=== PATIENT | male | born 1990 | race American Indian/Alaskan Native ===

== ENCOUNTER 2016-07-18 15:33 | Emergency (ER) | payer SELFPAY ==
[2016-07-18 15:53] VITALS: BP 111/69
[2016-07-18] MEDS ORDERED: LIDOCAINE VISCOUS 2% MM STA (17:24)
--- NOTE | 2016-07-18 17:30 | Emergency Department Report ---
ED ENT HPI - General Chief complaint: Dental/Oral Stated complaint: TOOTHACHE Time Seen by Provider: 07/18/16 17:18 Source: patient Mode of arrival: Ambulatory Limitations: No Limitations - History of Present Illness Initial comments: PT c/o gum infection x 1 week. PT states he thinks he has an abscess. PT states he broke his L front tooth 2-3 years ago. PT states that he went to a dentist 2-3 months ago for toothache and was told that he needs the tooth pulled. PT states his face was swollen but he took 3 doses of his cousin's antibiotic and he had a slight decrease in swelling MD complaint: tooth pain Onset/Timin -: Gradual, days(s) Location: tooth # (9) 1 - broken tooth with dental abscess Severity scale (0 -10): 8 Quality: constant, other (pressure ) Consistency: constant Improves with: other medication Worsens with: other (working in the freezer ) Context- Dental: trauma (2-3 years ago ) Associated Symptoms: gum swelling. denies: fever, sore throat - Related Data Previous Rx's Medication Instructions Recorded Last Taken Type Amoxicillin 500 mg PO BID #20 capsule 07/18/16 Unknown Rx Chlorhexidine Mouthwash [Peridex] 15 ml MM BID 7 Days 07/18/16 Unknown Rx traMADol [Ultram] 50 mg PO Q6HR PRN #12 tablet 07/18/16 Unknown Rx Allergies Allergy/AdvReac Type Severity Reaction Status Date / Time No Known Allergies Allergy Verified 07/18/16 15:52 ED Dental HPI - General Chief complaint: Dental/Oral Stated complaint: TOOTHACHE Time Seen by Provider: 07/18/16 17:18 Source: patient Mode of arrival: Ambulatory Limitations: No Limitations - Related Data Previous Rx's Medication Instructions Recorded Last Taken Type Amoxicillin 500 mg PO BID #20 capsule 07/18/16 Unknown Rx Chlorhexidine Mouthwash [Peridex] 15 ml MM BID 7 Days 07/18/16 Unknown Rx traMADol [Ultram] 50 mg PO Q6HR PRN #12 tablet 07/18/16 Unknown Rx Allergies Allergy/AdvReac Type Severity Reaction Status Date / Time No Known Allergies Allergy Verified 07/18/16 15:52 ED Review of Systems ROS: Stated complaint: TOOTHACHE Other details as noted in HPI Comment: All other systems reviewed and negative Constitutional: denies: fever ENT: as per HPI, dental pain. denies: ear pain, throat pain, congestion Neurological: denies: headache ED Past Medical Hx - Past Medical History Previous Medical History?: No - Surgical History Past Surgical History?: No - Social History Smoking Status: Current Every Day Smoker Substance Use Type: None - Medications Home Medications: Home Medications Medication Instructions Recorded Confirmed Last Taken Type Amoxicillin 500 mg PO BID #20 capsule 07/18/16 Unknown Rx Chlorhexidine Mouthwash [Peridex] 15 ml MM BID 7 Days 07/18/16 Unknown Rx traMADol [Ultram] 50 mg PO Q6HR PRN #12 tablet 07/18/16 Unknown Rx ED Physical Exam - General Limitations: No Limitations General appearance: alert, in no apparent distress - Head Head exam: Present: atraumatic, normocephalic, normal inspection - Eye Eye exam: Present: normal appearance. Absent: conjunctival injection - ENT ENT exam: Present: mucous membranes moist, TM's normal bilaterally, normal external ear exam - Expanded ENT Exam Expanded Ear exam: Present: normal external inspection Mouth exam: Present: normal external inspection. Absent: drooling, trismus Teeth exam: Present: fractured tooth # (9), gingival enlargement, other (dental abscess to tooth #9) Throat exam: Positive: normal inspection - Neck Neck exam: Present: normal inspection, full ROM. Absent: lymphadenopathy - Respiratory Respiratory exam: Present: normal lung sounds bilaterally. Absent: respiratory distress, wheezes - Cardiovascular Cardiovascular Exam: Present: regular rate, normal rhythm - Rectal Rectal exam: Present: deferred - Extremities Exam Extremities exam: Present: normal inspection, full ROM - Back Exam Back exam: Present: normal inspection, full ROM - Neurological Exam Neurological exam: Present: alert, oriented X3 - Psychiatric Psychiatric exam: Present: normal affect, normal mood - Skin Skin exam: Present: warm, dry, intact, normal color ED Course Vital Signs 07/18/16 15:50 Temperature 98.6 F Pulse Rate 66 Respiratory 16 Rate Blood Pressure 111/69 O2 Sat by Pulse 100 Oximetry - Reevaluation(s) Reevaluation #1: 07/18/16 18:03 PT tolerated aspiration well. PT given strict instructions on antibiotic use and compliance. pt advised not to take other's RX medication. PT encouraged to refrain from smoking. PT not ready to quit. PT aware he will have to follow up with Dentist. - I & D Left Upper Jaw Type of Procedure: Simple Site: tooth #9 Blade Size: 18 guage needle I & D Procedure: no sterile drapes applied, no gauze wick placed Progress: pt was given viscous lidocaine for pain control, then an 18 gauge needle was used to aspirate small amount of purulent drainage from dental abscess. pt tolerated the procedure well. - Pulse Oximetry Interpretation Digit-Finger Initial Pulse Oximetry Readin Actions Taken: none ED Medical Decision Making - Differential Diagnosis toothache, gingivitis, dental abscess Critical care attestation.: If time is entered above; I have spent that time in minutes in the direct care of this critically ill patient, excluding procedure time. ED Disposition Clinical Impression: Dental abscess Disposition: DISCHARGED TO HOME OR SELFCARE Is pt being admited?: No Does the pt Need Aspirin: No Condition: Stable Instructions: Dental Abscess (ED) Additional Instructions: Swish and Spit with warm salt water at least 4 times a day Refrain from smoking No driving or ETOH after Ultram You can also take OTC Motrin or Tylenol with your Prescriptions Prescriptions: Amoxicillin 500 mg PO BID #20 capsule Chlorhexidine Mouthwash [Peridex] 15 ml MM BID 7 Days traMADol [Ultram] 50 mg PO Q6HR PRN #12 tablet PRN Reason: Pain Referrals: PRIMARY CARE,MD [Primary Care Provider] - 3-5 Days Forms: Work/School Release Form(ED) Time of Disposition: 18:06
== END 2016-07-18 18:14 | disposition home or self-care (01) ==
LOC: ED 15:33
DX: K04.7 Periapical abscess without sinus (principal); F17.200 Nicotine dependence, unspecified, uncomplicated

== ENCOUNTER 2017-01-13 00:55 | Emergency (ER) | payer SELFPAY ==
[2017-01-13] MEDS ORDERED: TYLENOL PO ONE (01:32)
[2017-01-13 02:02] LABS: Eosinophils % (Auto) 5.3 % (0.0-4.3); Hematocrit 40.8 % (35.5-45.6); Hemoglobin 13.6 gm/dl (11.8-15.2); Mean Corpuscular HGB Conc 33 % (32-34); Mean Corpuscular Hemoglobin 30 pg (28-32); Mean Corpuscular Volume 89 fl (84-94); Platelet Count 196 K/mm3 (140-440); Red Blood Count 4.58 M/mm3 (3.65-5.03); Red Cell Distribution Width 13.6 % (13.2-15.2); White Blood Count 7.5 K/mm3 (4.5-11.0)
[2017-01-13 02:22] LABS: Anion Gap 16 mmol/L; BUN/Creatinine Ratio 17.77; Blood Urea Nitrogen 16 mg/dL (9-20); Carbon Dioxide 26 mmol/L (22-30); Chloride 102.9 mmol/L (98-107); Glucose 74 mg/dL (75-100); Potassium 4.3 mmol/L (3.6-5.0); Sodium 141 mmol/L (137-145)
--- NOTE | 2017-01-13 07:44 | XRay Report ---
ROUTINE CHEST, TWO VIEWS: HISTORY: chest pain. The trachea, heart, mediastinal contour, lung sifuentes and bony thorax are unremarkable. IMPRESSION: Unremarkable chest x-ray.
[2017-01-13 09:49] VITALS: BP 100/67
--- NOTE | 2017-01-13 09:56 | Emergency Department Report ---
ED Chest Pain HPI - General Chief Complaint: Chest Pain Stated Complaint: CP Time Seen by Provider: 01/13/17 09:38 Source: patient Mode of arrival: Ambulatory Limitations: No Limitations - History of Present Illness Initial Comments: 26-year-old male here with complaint of chest pain. Patient states that he has had increasing chest pain for the last 3 weeks. He's had some cough in the pain is worse with cough. Is also worse with rotating his chest. He has no shortness of breath no fevers no chills. No history of coronary disease. MD Complaint: chest pain -: days(s), week(s) (3) Onset: during exertion Pain Location: left chest Pain Radiation: none Severity: mild Severity scale (0 -10): 0 Quality: sharp Consistency: intermittent Improves With: nothing Worsens With: movement, other (cough) re: denies: nausea, vomting, diaphoresis, dyspnea, sense of impending doom Other Symptoms: cough - Related Data Previous Rx's Medication Instructions Recorded Last Taken Type Amoxicillin 500 mg PO BID #20 capsule 07/18/16 Unknown Rx Chlorhexidine Mouthwash [Peridex] 15 ml MM BID 7 Days 07/18/16 Unknown Rx traMADol [Ultram] 50 mg PO Q6HR PRN #12 tablet 07/18/16 Unknown Rx Ibuprofen [Motrin] 600 mg PO Q8H PRN #30 tablet 01/13/17 Unknown Rx Allergies Allergy/AdvReac Type Severity Reaction Status Date / Time No Known Allergies Allergy Verified 07/18/16 15:52 Heart Score - HEART Score History: Slightly suspicious EKG: Normal Age: < 45 Risk factors: No known risk factors Troponin: < normal limit HEART Score: 0 - Critical Actions Critical Actions: 0-3 pts:0.9-1.7%risk of adverse cardiac event.Candidate for discharge ED Review of Systems ROS: Stated complaint: CP Other details as noted in HPI Comment: All other systems reviewed and negative Constitutional: denies: chills, fever Eyes: denies: eye pain, eye discharge, vision change ENT: denies: ear pain, throat pain Respiratory: denies: cough, shortness of breath, wheezing Cardiovascular: denies: chest pain, palpitations Endocrine: no symptoms reported Gastrointestinal: denies: abdominal pain, nausea, diarrhea Genitourinary: denies: urgency, dysuria Musculoskeletal: denies: back pain, joint swelling, arthralgia Skin: denies: rash, lesions Neurological: denies: headache, weakness, paresthesias Psychiatric: denies: anxiety, depression Hematological/Lymphatic: denies: easy bleeding, easy bruising ED Past Medical Hx - Past Medical History Previous Medical History?: No - Surgical History Past Surgical History?: No - Family History Family history: no significant - Social History Smoking Status: Current Every Day Smoker Substance Use Type: None - Medications Home Medications: Home Medications Medication Instructions Recorded Confirmed Last Taken Type Amoxicillin 500 mg PO BID #20 capsule 07/18/16 Unknown Rx Chlorhexidine Mouthwash [Peridex] 15 ml MM BID 7 Days 07/18/16 Unknown Rx traMADol [Ultram] 50 mg PO Q6HR PRN #12 tablet 07/18/16 Unknown Rx Ibuprofen [Motrin] 600 mg PO Q8H PRN #30 tablet 01/13/17 Unknown Rx ED Physical Exam - General Limitations: No Limitations General appearance: alert, in no apparent distress - Head Head exam: Present: atraumatic, normocephalic - Eye Eye exam: Present: normal appearance - ENT ENT exam: Present: mucous membranes moist - Neck Neck exam: Present: normal inspection - Respiratory Respiratory exam: Present: normal lung sounds bilaterally. Absent: respiratory distress - Cardiovascular Cardiovascular Exam: Present: regular rate, normal rhythm, normal heart sounds. Absent: systolic murmur, diastolic murmur, rubs, gallop - GI/Abdominal GI/Abdominal exam: Present: soft, normal bowel sounds - Rectal Rectal exam: Present: deferred - Extremities Exam Extremities exam: Present: normal inspection - Back Exam Back exam: Present: normal inspection - Neurological Exam Neurological exam: Present: alert, oriented X3 - Psychiatric Psychiatric exam: Present: normal affect, normal mood - Skin Skin exam: Present: warm, dry, intact, normal color. Absent: rash ED Course Vital Signs 01/13/17 01/13/17 01/13/17 00:58 00:59 05:38 Temperature 98.6 F 97.8 F Pulse Rate 68 68 60 Respiratory 20 18 Rate Blood Pressure 107/72 103/63 Blood Pressure [Left] O2 Sat by Pulse 98 98 99 Oximetry 01/13/17 01/13/17 09:33 09:45 Temperature 97.8 F 97.7 F Pulse Rate 55 L 50 L Respiratory 16 14 Rate Blood Pressure 103/60 Blood Pressure 100/67 [Left] O2 Sat by Pulse 99 100 Oximetry ED Medical Decision Making - Lab Data Result diagrams: 01/13/17 01:43 01/13/17 01:43 Laboratory Results - last 24 hr 01/13/17 01/13/17 01/13/17 01:43 01:43 04:29 WBC 7.5 RBC 4.58 Hgb 13.6 Hct 40.8 MCV 89 MCH 30 MCHC 33 RDW 13.6 Plt Count 196 Lymph % (Auto) 27.8 [place] % (Auto) 9.4 H Eos % (Auto) 5.3 H Baso % (Auto) 1.0 Lymph # 2.1 [place] # 0.7 Eos # 0.4 Baso # 0.1 Seg Neutrophils % 56.5 Seg Neutrophils # 4.3 Sodium 141 Potassium 4.3 Chloride 102.9 Carbon Dioxide 26 Anion Gap 16 BUN 16 Creatinine 0.9 Estimated GFR > 60 BUN/Creatinine Ratio 17.77 Glucose 74 L Calcium 9.0 Troponin T < 0.010 < 0.010 01/13/17 07:06 WBC RBC Hgb Hct MCV MCH MCHC RDW Plt Count Lymph % (Auto) [place] % (Auto) Eos % (Auto) Baso % (Auto) Lymph # [place] # Eos # Baso # Seg Neutrophils % Seg Neutrophils # Sodium Potassium Chloride Carbon Dioxide Anion Gap BUN Creatinine Estimated GFR BUN/Creatinine Ratio Glucose Calcium Troponin T < 0.010 - EKG Data -: EKG Interpreted by Me - EKG Data 01/13/17 10:02 Sinus 57 normal axis or intervals no ST-T wave changes - Medical Decision Making 26-year-old male here with chest pain for several weeks. Pain is worse with cough and worse with inspiration. His EKG is normal chest x-ray is normal labs are unremarkable. I don't suspect that he has a PE. His oxygen saturations are 100% and he is bradycardic. Plan to discharge him with NSAIDs. Portions of this chart were dictated with dictation software. There may be dictation errors contained within this note. Critical care attestation.: If time is entered above; I have spent that time in minutes in the direct care of this critically ill patient, excluding procedure time. ED Disposition Clinical Impression: Musculoskeletal chest pain Disposition: DC- TO HOME OR SELFCARE Is pt being admited?: No Condition: Stable Instructions: Chest Pain (ED) Prescriptions: Ibuprofen [Motrin] 600 mg PO Q8H PRN #30 tablet PRN Reason: Pain Referrals: PRIMARY CARE,MD [Primary Care Provider] - 3-5 Days
[2017-01-13] MEDS ORDERED: TORADOL IM ONE (10:09)
[2017-01-13] MEDS ORDERED: TORADOL ONE (10:20)
== END 2017-01-13 10:30 | disposition home or self-care (01) ==
LOC: ED 00:55
DX: R07.89 Other chest pain (principal); R05 Cough; F17.210 Nicotine dependence, cigarettes, uncomplicated
CPT/HCPCS: 36415; 71020; 80048; 84484; 85025; 93005; 93010; 96372; 99284; J1885

== ENCOUNTER 2018-10-24 02:08 | Emergency (ER) | payer OTHER ==
[2018-10-24 02:58] VITALS: BP 96/52
--- NOTE | 2018-10-24 05:00 | Emergency Department Report ---
- General Chief complaint: Skin Rash Stated complaint: KNOT ON LT SIDE Time Seen by Provider: 10/24/18 04:07 Source: patient Mode of arrival: Ambulatory Limitations: No Limitations - History of Present Illness Initial comments: Patient is a 28-year-old male who presents the emergency department with complaints of a possible insect bite to the right forearm that occurred 3 days ago. He did not see anything bite him. He states he has had some itching. He denies any drainage or fever. He states he also has a "lump" to his left ribs which has been there for "several years." He denies any pain of the lump or any drainage. pt denies any past medical history. Denies any allergies to medications or daily medications. - Related Data Previous Rx's Medication Instructions Recorded Last Taken Type Amoxicillin 500 mg PO BID #20 capsule 07/18/16 Unknown Rx Chlorhexidine Mouthwash [Peridex] 15 ml MM BID 7 Days bottle 07/18/16 Unknown Rx traMADol [Ultram] 50 mg PO Q6HR PRN #12 tablet 07/18/16 Unknown Rx Ibuprofen [Motrin] 600 mg PO Q8H PRN #30 tablet 01/13/17 Unknown Rx Neomycin/Bacitracin/Polymyxinb 1 applicatio TP BID #1 oint...g. 10/24/18 Unknown Rx [Triple Antibiotic Ointment] Allergies Allergy/AdvReac Type Severity Reaction Status Date / Time No Known Allergies Allergy Verified 07/18/16 15:52 Abscess Boil HPI - HPI Chief Complaint: Skin Rash Stated Complaint: KNOT ON LT SIDE Time Seen by Provider: 10/24/18 04:07 Home Medications: Previous Rx's Medication Instructions Recorded Last Taken Type Amoxicillin 500 mg PO BID #20 capsule 07/18/16 Unknown Rx Chlorhexidine Mouthwash [Peridex] 15 ml MM BID 7 Days bottle 07/18/16 Unknown Rx traMADol [Ultram] 50 mg PO Q6HR PRN #12 tablet 07/18/16 Unknown Rx Ibuprofen [Motrin] 600 mg PO Q8H PRN #30 tablet 01/13/17 Unknown Rx Neomycin/Bacitracin/Polymyxinb 1 applicatio TP BID #1 oint...g. 10/24/18 Unknown Rx [Triple Antibiotic Ointment] Allergies/Adverse Reactions: Allergies Allergy/AdvReac Type Severity Reaction Status Date / Time No Known Allergies Allergy Verified 07/18/16 15:52 ED Review of Systems ROS: Stated complaint: KNOT ON LT SIDE Other details as noted in HPI Comment: All other systems reviewed and negative ED Past Medical Hx - Past Medical History Previous Medical History?: No - Surgical History Past Surgical History?: No - Social History Smoking Status: Current Every Day Smoker - Medications Home Medications: Home Medications Medication Instructions Recorded Confirmed Last Taken Type Amoxicillin 500 mg PO BID #20 capsule 07/18/16 Unknown Rx Chlorhexidine Mouthwash [Peridex] 15 ml MM BID 7 Days bottle 07/18/16 Unknown Rx traMADol [Ultram] 50 mg PO Q6HR PRN #12 tablet 07/18/16 Unknown Rx Ibuprofen [Motrin] 600 mg PO Q8H PRN #30 tablet 01/13/17 Unknown Rx Neomycin/Bacitracin/Polymyxinb 1 applicatio TP BID #1 oint...g. 10/24/18 Unknown Rx [Triple Antibiotic Ointment] ED Physical Exam - General Limitations: No Limitations General appearance: alert, in no apparent distress - Head Head exam: Present: atraumatic, normocephalic - Eye Eye exam: Present: normal appearance, PERRL - ENT ENT exam: Present: mucous membranes moist - Neurological Exam Neurological exam: Present: alert, oriented X3 - Psychiatric Psychiatric exam: Present: normal affect, normal mood - Skin Skin exam: Present: warm, dry, other (very small abrasion to the anterior surface of the right forearm, no blistering, no erythema, no induration, no fluctuance, no drainage, small 1 cm area of edema to the left lateral rib cage that is freely moveable no induration, no erythema) ED Course Vital Signs 10/24/18 02:53 Temperature 98.8 F Pulse Rate 95 H Respiratory 18 Rate Blood Pressure 96/52 O2 Sat by Pulse 97 Oximetry ED Medical Decision Making - Medical Decision Making Patient is a 28-year-old male who presents the emergency department with complaints of a possible insect bite to the right forearm that occurred 3 days ago. He did not see anything bite him. He states he has had some itching. He denies any drainage or fever. He states he also has a "lump" to his left ribs which has been there for "several years." He denies any pain of the lump or any drainage. pt denies any past medical history. Denies any allergies to medications or daily medications. on exam: very small abrasion to the anterior surface of the right forearm, no blistering, no erythema, no induration, no fluctuance, no drainage, small 1 cm area of edema to the left lateral rib cage that is freely moveable no induration, no erythema, no TTP, area on the rib cage most likely representing a lipoma discussed with pt that it is typically a benign finding and to follow up with PCP for reevaluation of the area. pt given abx ointment prescription. advised to use as prescribed on the forearm. may take benadryl over the counter for itching. follow up with a primary care doctor in the next 2-3 days. return to the emergency room for any new or worsening symptoms. Critical care attestation.: If time is entered above; I have spent that time in minutes in the direct care of this critically ill patient, excluding procedure time. ED Disposition Clinical Impression: Lump of rib Abrasion of right forearm Qualifiers: Encounter type: initial encounter Qualified Code(s): S50.811A - Abrasion of right forearm, initial encounter Disposition: TO HOME OR SELFCARE Is pt being admited?: No Does the pt Need Aspirin: No Condition: Stable Instructions: Insect Bite or Sting (ED) Additional Instructions: advised to use ointment as prescribed on the forearm. may take benadryl over the counter for itching. follow up with a primary care doctor in the next 2-3 days. return to the emergency room for any new or worsening symptoms. Prescriptions: Neomycin/Bacitracin/Polymyxinb [Triple Antibiotic Ointment] 1 applicatio TP BID #1 oint...g. Referrals: BHARGAVI RIVERA MD [Primary Care Provider] - 2-3 Days [facility] [Outside] - 2-3 Days [facility] [Outside] - 2-3 Days Time of Disposition: 05:00 Print Language: WOLOF
== END 2018-10-24 05:08 | disposition home or self-care (01) ==
LOC: ED 02:08
DX: S50.811A Abrasion of right forearm, initial encounter (principal); R22.2 Localized swelling, mass and lump, trunk; F17.200 Nicotine dependence, unspecified, uncomplicated; Z79.899 Other long term (current) drug therapy; X58.XXXA Exposure to other specified factors, initial encounter; Y93.89 Activity, other specified; Y92.89 Other specified places as the place of occurrence of the external cause; Y99.8 Other external cause status
CPT/HCPCS: 99281

== ENCOUNTER 2020-02-27 14:42 | Emergency (ER) | payer SELFPAY ==
[2020-02-27 14:57] VITALS: BP 118/61
--- NOTE | 2020-02-27 15:09 | Emergency Department Report ---
ED Upper Extremity Inj HPI - General Chief Complaint: Shoulder Injury Stated Complaint: LT ARM PAIN Time Seen by Provider: 02/27/20 15:02 Source: patient Mode of arrival: Ambulatory Limitations: No Limitations - History of Present Illness Initial Comments: This is a 29-year-old male nontoxic, well nourished in appearance, no acute signs of distress presents to the ED with c/o of chronic left shoulder pain x 30 years. Patient denies any new trauma or injuries. Stated came into the ED due to free time and wanted to get it checked out. Denies decreased ROM, joint swelling, redness, or abnormal gait. Denies any fever, chills, nausea, vomiting, headache, stiff neck, chest pain or shortness of breath. Patient denies any numbness or tingling. Denies any allergies. MD Complaint: Injury to:: left, shoulder -: year(s) (30) Other Extremity Injury: Shoulder: Left Severity scale (0 -10): 0 Improves With: none Worsens With: none Associated Symptoms: denies other symptoms. denies: weakness, numbness, neck pain, suspects foreign body, nausea/vomiting, heard/felt popping sensat - Related Data Previous Rx's Medication Instructions Recorded Last Taken Type Amoxicillin 500 mg PO BID #20 capsule 07/18/16 Unknown Rx Chlorhexidine Mouthwash [Peridex] 15 ml MM BID 7 Days bottle 07/18/16 Unknown Rx traMADoL [Ultram] 50 mg PO Q6HR PRN #12 tablet 07/18/16 Unknown Rx Ibuprofen [Motrin] 600 mg PO Q8H PRN #30 tablet 01/13/17 Unknown Rx Neomycin/Bacitracin/Polymyxinb 1 applicatio TP BID #1 oint...g. 10/24/18 Unknown Rx [Triple Antibiotic Ointment] Allergies Allergy/AdvReac Type Severity Reaction Status Date / Time No Known Allergies Allergy Verified 07/18/16 15:52 ED Review of Systems ROS: Stated complaint: LT ARM PAIN Other details as noted in HPI Comment: All other systems reviewed and negative Constitutional: denies: chills, fever Eyes: denies: eye pain, eye discharge, vision change ENT: denies: ear pain, throat pain Respiratory: denies: cough, shortness of breath, wheezing Cardiovascular: denies: chest pain, palpitations Endocrine: no symptoms reported Gastrointestinal: denies: abdominal pain, nausea, diarrhea Genitourinary: denies: urgency, dysuria Musculoskeletal: denies: back pain, joint swelling, arthralgia Skin: denies: rash, lesions Neurological: denies: headache, weakness, paresthesias Psychiatric: denies: anxiety, depression Hematological/Lymphatic: denies: easy bleeding, easy bruising ED Past Medical Hx - Past Medical History Previous Medical History?: No - Surgical History Past Surgical History?: No - Social History Smoking Status: Never Smoker Substance Use Type: None - Medications Home Medications: Home Medications Medication Instructions Recorded Confirmed Last Taken Type Amoxicillin 500 mg PO BID #20 capsule 07/18/16 Unknown Rx Chlorhexidine Mouthwash [Peridex] 15 ml MM BID 7 Days bottle 07/18/16 Unknown Rx traMADoL [Ultram] 50 mg PO Q6HR PRN #12 tablet 07/18/16 Unknown Rx Ibuprofen [Motrin] 600 mg PO Q8H PRN #30 tablet 01/13/17 Unknown Rx Neomycin/Bacitracin/Polymyxinb 1 applicatio TP BID #1 oint...g. 10/24/18 Unknown Rx [Triple Antibiotic Ointment] ED Physical Exam - General Limitations: No Limitations General appearance: alert, in no apparent distress - Head Head exam: Present: atraumatic, normocephalic - Eye Eye exam: Present: normal appearance - Neck Neck exam: Present: normal inspection, full ROM - Respiratory Respiratory exam: Absent: respiratory distress - Cardiovascular Cardiovascular Exam: Present: regular rate - Extremities Exam Extremities exam: Present: normal inspection, full ROM, normal capillary refill. Absent: tenderness, joint swelling - Expanded Upper Extremity Exam Left General: Present: normal inspection Shoulder Exam: Present: normal inspection, full ROM. Absent: tenderness, swelling, abrasion, laceration, ecchymosis, deformity, crepidus, dislocation, erythema, tenderness over AC joint Upper Arm exam: Present: normal inspection, full ROM. Absent: tenderness, swelling, abrasion, laceration, ecchymosis, deformity, crepidus, dislocation, erythema Elbow exam: Present: normal inspection, full ROM. Absent: tenderness, swelling Forearm Wrist exam: Present: normal inspection, full ROM. Absent: tenderness, swelling Hand Wrist exam: Present: normal inspection, full ROM. Absent: tenderness, swelling Vascular: Present: normal capillary refill. Absent: vascular compromise (neurovascular intact) - Back Exam Back exam: Present: normal inspection, full ROM. Absent: tenderness, CVA tenderness (R), CVA tenderness (L), muscle spasm, paraspinal tenderness, vertebral tenderness, rash noted - Neurological Exam Neurological exam: Present: alert, oriented X3, normal gait - Psychiatric Psychiatric exam: Present: normal affect, normal mood - Skin Skin exam: Present: warm, dry, intact, normal color. Absent: rash ED Course Vital Signs 02/27/20 14:56 Temperature 97.8 F Pulse Rate 69 Respiratory 16 Rate Blood Pressure 118/61 [Right] O2 Sat by Pulse 99 Oximetry - Reevaluation(s) Reevaluation #1: 02/27/20 15:08 Patient is speaking in full sentences with no signs of distress noted. ED Medical Decision Making - Medical Decision Making This is a 29-year-old female that presents with chronic left shoulder pain. Patient is stable and was examined by me. Exam does not show any acute conditions. No joint effusion, no redness, no decreased ROM. Normal gait. Patient was instructed to Follow-up with a orthopedic doctor in 3-5 days or if symptoms worsen and continue return to emergency room as soon as possible. At time of discharge, the patient does not seem toxic or ill in appearance. No acute signs of distress noted. Patient agrees to discharge treatment plan of care. No further questions noted by the patient. Critical care attestation.: If time is entered above; I have spent that time in minutes in the direct care of this critically ill patient, excluding procedure time. ED Disposition Clinical Impression: Chronic left shoulder pain Disposition: [facility] SCREENING EXAM-LEFT Is pt being admited?: No Does the pt Need Aspirin: No Condition: Stable Additional Instructions: Follow-up with a orthopedic doctor in 3-5 days or if symptoms worsen and continue return to emergency room as soon as possible. Referrals: PRIMARY CARE, [Referring] - 3-5 Days AUGUSTO AYALA MD [Staff Physician] - 3-5 Days
== END 2020-02-27 18:53 | disposition left against medical advice (07) ==
LOC: ED 14:42
DX: M79.601 Pain in right arm (principal); Z53.21 Procedure and treatment not carried out due to patient leaving prior to being seen by health care provider

== ENCOUNTER 2020-06-01 10:55 | Emergency (ER) | payer SELFPAY ==
[2020-06-01 11:31] VITALS: BP 100/59
[2020-06-01] MEDS ORDERED: DIPHtheria,PERTUSSIS(ACELL),TETANUS VACCINE/PF 0.5 ML VIAL IM ONE ×2 (12:07→15:00)
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
== END 2020-06-01 14:15 | disposition home or self-care (01) ==
LOC: ED 10:55
DX: S61.252A Open bite of right middle finger without damage to nail, initial encounter (principal); Z79.899 Other long term (current) drug therapy; W50.3XXA Accidental bite by another person, initial encounter; Y93.89 Activity, other specified; Y92.89 Other specified places as the place of occurrence of the external cause; Y99.8 Other external cause status
CPT/HCPCS: 90471; 90715; 99283